=== PATIENT | male | born 1950 | race Caucasian/White ===

== ENCOUNTER 2016-07-12 07:41 | Day surgery (SDC) | payer OTHER, MEDICARE ==
[2016-07-07 17:34] VITALS: BMI 36.6
[2016-07-12] MEDS ORDERED: BUPIVACAINE HCL/PF 0.5% (5MG/ML) 10 ML VIAL ONE ×2 (09:56→10:39)
[2016-07-12] MEDS ORDERED: LIDOCAINE 1%/EPI 1:100000 (50 ML MULTI DOSE VIAL) ONE ×2 (09:56→10:39)
--- NOTE | 2016-07-12 10:42 | HP ---
Satellite PMH - Chief Complaint Chief Complaint: right knee pain s/p medial brennan ukr - Past Medical History Allergies/Adverse Reactions: Allergies Allergy/AdvReac Type Severity Reaction Status Date / Time No Known Allergies Allergy Verified 07/12/16 08:29 - Current Medications Current Medications: Home Medications Medication Instructions Recorded Amlodipine Besylate [Norvasc -] 10 mg PO DAILY 11/16/15 Atorvastatin Ca [Lipitor] 40 mg PO DAILY 11/16/15 Aspirin Coated [Ecotrin -] 81 mg PO DAILY 07/07/16 Oxycodone HCl/Acetaminophen 1 - 2 tab PO Q6H #50 tab MDD 8 07/12/16 [Percocet 5-325 mg Tablet -] Satellite Physical Exam - Physical Examination Vital Signs: Vital Signs Period Temp Pulse Resp BP Sys/Martinez Pulse Ox Last 24 Hr 97.8 F 99 16 116/82 97 General Appearance: Well Nourished, Well Developed, Alert & Oriented x3 ENT: Clear Lung: Normal air movement Heart: Regular rate & rhythm Extremities: Other (right knee- Healed incision, + ttp laterally, + swelling, decr rom, nvi MRI + lmt) Neurological: Intact, Alert, Oriented Satellite Impression/Plan - Impression/Plan Impression: right knee internal derangement Operative Procedure: right knee arthroscopy Date to be Performed: 07/12/16
[2016-07-12] MEDS ORDERED: PROPOFOL 20 ML ONE (10:58)
[2016-07-12] MEDS ORDERED: MIDAZOLAM HCL 2 MG/2 ML SINGLE DOSE VIAL ONE (10:58)
[2016-07-12] MEDS ORDERED: DEXAMETHASONE SOD PHOSPHATE 4 MG/1 ML VIAL ONE (10:58)
[2016-07-12] MEDS ORDERED: KETOROLAC TROMETHAMINE 30 MG/1 ML VIAL ONE (10:58)
[2016-07-12] MEDS ORDERED: ceFAZolin SODIUM 1 GM VIAL ONE (11:11)
[2016-07-12] MEDS ORDERED: ceFAZolin SODIUM 1 GM VIAL IVPB ONE (11:14)
[2016-07-12] MEDS ORDERED: LIDOCAINE 1%/EPI 1:100000 (50 ML MULTI DOSE VIAL) PNB ONE (11:20)
[2016-07-12] MEDS ORDERED: BUPIVACAINE HCL/PF 0.5% (5MG/ML) 10 ML VIAL PNB ONE (11:25)
--- NOTE | 2016-07-12 11:50 | OP ---
Operative Note - Note: Operative Date: 07/12/16 Pre-Operative Diagnosis: internal derrangement right knee Operation: arthroscopy right knee with partial lateral meniscectomy and chondroplasty Post-Operative Diagnosis: Same as Pre-op Anesthesia: General Estimated Blood Loss (mls): 0 Operative Report Dictated: Yes
[2016-07-12] MEDS ORDERED: ONDANSETRON 4 MG/2 ML VIAL IVPUSH PRN (11:52)
[2016-07-12] MEDS ORDERED: oxyCODONE HCL 5 MG TABLET PO PRN (11:52)
[2016-07-12] MEDS ORDERED: ACETAMINOPHEN 1000 MG/100 ML VIAL (NON FORMULARY) IVPB PRN (11:53)
[2016-07-12] MEDS ORDERED: LACTATED RINGERS SOLUTION 1,000 ML IV SCH (12:00)
[2016-07-12 13:23] VITALS: TEMP 98.6
[2016-07-12 14:00] VITALS: BP 126/66; PULSE 90
--- NOTE | 2016-07-13 10:53 | OP ---
DATE OF OPERATION: 07/12/2016 PROCEDURE: 1. Arthroscopy, right knee 2. Partial lateral meniscectomy and chondroplasty PREOPERATIVE DIAGNOSIS: Internal derangement, right knee POSTOPERATIVE DIAGNOSIS: Internal derangement, right knee SURGICAL ATTENDING: Nate Mccormick MD ANESTHESIA: General with LMA CLOSURE: 4-0 nylon COMPLICATION: None CONDITION: To recovery room in stable condition. DESCRIPTION OF OPERATIVE PROCEDURE: Patient was taken to the operating room on July 12, 2016. General anesthesia with LMA was administered by the anesthesiologist. IV Kefzol was administered prophylactically prior to this case. Right lower extremity was prepped in the usual sterile fashion. The superolateral and mediolateral infrapatellar portal sites were infiltrated with 1% Xylocaine with epinephrine. A superolateral portal was made with a 15 blade followed by the blunt trocar. The knee was aspirated and inflated with a cocktail of 10 mL of 1% Xylocaine, 10 mL of 0.5% Marcaine and 20 mL of arthroscopic saline. The medial and lateral infrapatellar portal was then made with a 15 blade followed by the blunt trocar. The scope was placed in the lateral suprapatellar portal and up into suprapatellar pouch. Pouch was visualized to be clean. The medial and lateral gutters were visualized to be clean. The undersurface of the patella and the trochlea were visualized to be intact with minimal, if any, arthritic changes. With valgus stress on the knee, the medial compartment was entered. The partial knee replacement was found to be in good position. Probing of the components revealed good stability of the components and with range of motion seemed to be functioning appropriately. At 90 degrees, the ACL was visualized and probed, found to be intact. In the figure 4 position, the lateral compartment was entered. The lateral meniscus was found to have a complex tear of its posterior and mid portion. This was debrided back to smooth and stable meniscal tissue using a meniscal biter and arthroscopic shaver. The lateral tibial plateau was found to have some grade 4 changes on its most posterior and lateral portion, any loose articular cartilage debrided using the shaver. The lateral femoral condyle also had some grade 4 changes at its most lateral portion, which was present from about 30 to 60 degrees of flexion. The rest of the lateral femoral condyle was found to be basically intact. The knee was thoroughly irrigated out with copious amounts of irrigation and then drained of its fluid. The portals were closed with 3-0 nylon suture, and a sterile pressure dressing was placed over the knee. Prior to closure, 20 mL of 0.5% Marcaine was infused in the knee for postoperative analgesia. A sterile pressure dressing was applied. Patient was awakened from anesthesia and transferred to the recovery room in stable condition. No complications. Estimated blood loss negligible. Jean [id number]
--- NOTE | 2016-07-13 13:49 | PATH ---
Surgical Pathology Report Patient Name: CAROLINE POWELL [facility]. Rec. #: [id number] /Age/Gender: 1950 (Age: 66) / M Account: [id number] Location: [facility] Taken: 07/12/2016 Received: 07/12/2016 Reported: 07/13/2016 Physicians: Nate Mccormick M.D. 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 Electronically Signed Iggy Yan M.D. Gross Description Received in formalin, labeled "right knee shavings" is a 4.0 x 2.5 x 0.4 cm aggregate of soria-yellow soft tissue fragments. A players club representative portion is submitted in one cassette. /07/12/201607/12/2016
== END 2016-07-12 14:00 | disposition home or self-care (01) ==
LOC: JASU-SURG 07:41
PROVIDERS: ATTEND Orthopaedic Surgery
PROC: 0SBC4ZZ Excision of Right Knee Joint, Percutaneous Endoscopic Approach (ICD-10-PCS; principal; 2016-07-12 10:15)
DX: M23.91 Unspecified internal derangement of right knee (principal)
CPT/HCPCS: 88304-TC; 94760

== ENCOUNTER 2017-08-07 06:07 | Inpatient (IN) | payer OTHER, MEDICARE ==
[2017-08-07] MEDS ORDERED: CELECOXIB 200 MG CAPSULE PO ONE (07:05)
[2017-08-07] MEDS ORDERED: TRANEXAMIC ACID 1000 MG/10 ML VIAL IVPUSH ONE (07:05)
[2017-08-07] MEDS ORDERED: CEFAZOLIN 2 GM in DEXTROSE 5%-WATER - 50 ML IVPB ONE (07:05)
[2017-08-07] MEDS ORDERED: oxyCODONE HCL 10 MG SUSTAINED ACTING TABLET PO ONE (07:05)
[2017-08-07] MEDS ORDERED: GABAPENTIN 300 MG CAPSULE (FP) PO ONE (07:05)
[2017-08-07] MEDS ORDERED: ceFAZolin SODIUM 1 GM VIAL ONE ×2 (07:28→11:47)
[2017-08-07] MEDS ORDERED: VANCOMYCIN 1,000 MG VIAL (RESTRICTED TO ID ONLY) ONE (07:28)
[2017-08-07 07:49] VITALS: BMI 40.6
--- NOTE | 2017-08-07 07:50 | HP ---
Satellite [facility] - Chief Complaint Chief Complaint: left knee pain - Past Medical History Allergies/Adverse Reactions: Allergies Allergy/AdvReac Type Severity Reaction Status Date / Time No Known Allergies Allergy Verified 07/12/16 08:29 - Current Medications Current Medications: Home Medications Medication Instructions Recorded Amlodipine Besylate [Norvasc -] 10 mg PO DAILY 11/16/15 Atorvastatin Ca [Lipitor] 40 mg PO DAILY 11/16/15 Aspirin Coated [Ecotrin -] 81 mg PO DAILY 07/07/16 Chlorthalidone 25 mg PO DAILY 07/30/17 Nortriptyline HCl [Pamelor -] 10 mg PO HS 07/30/17 [place]-3/Dha/Epa/Fish Oil [Fish Oil 1 each PO DAILY 07/30/17 EC 1,200 mg Softgel] Tiotropium Br/Olodaterol HCl 4 gm IH DAILY 07/30/17 [Stiolto Respimat Inhal [place]] Ferrous Sulfate 325 mg PO DAILY 08/07/17 Satellite Physical Exam - Physical Examination Vital Signs: Vital Signs Period Temp Pulse Resp BP Sys/Martinez Pulse Ox Last 24 Hr 98.2 F 92 18 133/77 General Appearance: Well Nourished, Well Developed, Alert & Oriented x3 ENT: Clear Lung: Normal air movement Heart: Regular rate & rhythm Extremities: Other (left knee- + swelling, + ttp, decr rom, nvi xrays show grade 4 tricompartmental djd) Neurological: Intact, Alert, Oriented Satellite Impression/Plan - Impression/Plan Impression: left knee djd Operative Procedure: left brennan tkr Date to be Performed: 08/07/17
[2017-08-07] MEDS ORDERED: DEXAMETHASONE SOD PHOSPHATE/PF 10 MG/ML SDV ONE (09:13)
[2017-08-07] MEDS ORDERED: BUPIVACAINE LIPOSOME/PF (EXPAREL) 266 MG/20 ML VIAL ONE (09:13)
[2017-08-07] MEDS ORDERED: MIDAZOLAM HCL 2 MG/2 ML SINGLE DOSE VIAL ONE (09:13)
[2017-08-07] MEDS ORDERED: BUPIVACAINE HCL/PF 2.5 MG/ML - 30 ML VIAL IJ ONE (09:14)
[2017-08-07] MEDS ORDERED: PROPOFOL 20 ML ONE ×3 (11:31→12:18)
[2017-08-07] MEDS ORDERED: TRANEXAMIC ACID 1000 MG/10 ML VIAL ONE (11:47)
[2017-08-07] MEDS ORDERED: ePHEDrine SULFATE 50 MG/1 ML AMPULE ONE (11:47)
[2017-08-07] MEDS ORDERED: VANCOMYCIN 1,000 MG VIAL (RESTRICTED TO ID ONLY) IVPB ONE (12:27)
[2017-08-07] MEDS ORDERED: ONDANSETRON 4 MG/2 ML VIAL IVPUSH PRN (12:58)
[2017-08-07] MEDS ORDERED: MAGNESIUM HYDROX 2400MG/30ML ORAL SUSPENSION 30 ML CUP PO PRN (12:58)
[2017-08-07] MEDS ORDERED: MAG HYDROX/AL HYDROX/SIMETH 30 ML UNIT-DOSE CUP PO PRN (12:58)
[2017-08-07] MEDS ORDERED: LACTATED RINGERS SOLUTION 1,000 ML IV SCH (13:00)
--- NOTE | 2017-08-07 13:02 | OP ---
Operative Note - Note: Operative Date: 08/07/17 (yael) Pre-Operative Diagnosis: left knee djd Operation: left brennan tkr- press-fit Post-Operative Diagnosis: Same as Pre-op Surgeon: Nate Mccormick Diet Supervisor: Mauricio Smith Anesthesiologist/SILK OPENER: Ryan Salazar Anesthesia: Spinal, Local Specimens Removed: bone fragments Estimated Blood Loss (mls): 150 Operative Report Dictated: Yes
[2017-08-07] MEDS ORDERED: ACETAMINOPHEN 325 MG TABLET (FP) ONE (14:08)
[2017-08-07] MEDS ORDERED: ACETAMINOPHEN 325 MG TABLET (FP) PO ONE (14:09)
[2017-08-07] MEDS ORDERED: ACETAMINOPHEN 325 MG TABLET (FP) PO SCH (15:00)
--- NOTE | 2017-08-07 15:12 | SPEC ---
DATE OF OPERATION: 08/07/2017 PREOPERATIVE DIAGNOSIS: Degenerative joint disease, left knee. POSTOPERATIVE DIAGNOSIS: Degenerative joint disease, left knee. PROCEDURE: Left total knee replacement with robotic-assisted navigation (MAKOplasty). SURGICAL ATTENDING: Tonya Mccormick MD ANIME DESIGNER: PRIYANKA Young ANESTHESIA: Regional and spinal. CLOSURE: A [place] Press-Fit Triathlon knee system with a 4 PS femur, a 5 tibia, an 11 polyethylene, a 32 patella; No. 1 Vicryl, fascia; 0 and 2-0 for subcutaneous; and 3-0 Monocryl subcuticular with skin glue for skin; 4-0 undyed Vicryl for pin sites. ESTIMATED BLOOD LOSS: Approximately 100 mL. COMPLICATIONS: None. CONDITION: To recovery room in stable condition. DESCRIPTION OF OPERATIVE PROCEDURE: Patient was taken to the operating room on 08/07/2017. Regional and spinal anesthesia was administered by the anesthesiologist. IV Kefzol was administered prophylactically prior to the case as well as TXA. The left lower extremity was prepped and draped in the usual sterile fashion. The midline 10- to 12-cm longitudinal incision was made. Hemostasis was achieved with Bovie cautery. Sharp dissection was carried down to the extensor mechanism which was perform the procedure. Medial parapatellar arthrotomy was then performed, leaving a cuff of tissue for later closure. The patella was inverted and the knee was flexed up. The fat pad was excised. Subperiosteal dissection was done on the anteromedial proximal tibia until the knee was able to be brought forward. This was facilitated by taking the ACL, PCL and medial and lateral menisci. Checkpoints were placed in both the femur and in the tibia. Two parallel threaded pins were drilled superior to the knee joint through the already made incision from anterior to posterior just going through the anterior cortex but just engaging but not going through the posterior cortex. Two threaded pins were drilled through 2 small stab incisions in parallel fashion 1 handbreadth below the tibial tubercle through the anterior cortex of the tibia and engaging but not going through the posterior cortex. Both sets of pins were attached to navigation arrays for the KAY system. The knee was then registered with the navigation system with center of rotation of the hip, medial and lateral malleoli and multiple sites both on the tibia and on the femur. Confirmation of excellent registration was confirmed by "popping the bubbles." At this time, the knee was thoroughly inspected to remove all osteophytes around the knee. The knee was then tensioned in varus/valgus at both full extension and at 90 degrees of flexion to ascertain our gaps. The virtual position of the components was optimized to ensure equal gaps throughout the range of motion. Once this was performed, the robot was brought into the field, was registered. The bone was cut as per the specifications on both the tibia and on the femur. The box cuts were then made as well. Excellent trial stability was obtained on the femur. The tibial baseplate was allowed to "find itself" and then was clipped into place. Confirmation of excellent external rotation of that component was confirmed by the navigation device as well.The patella was calibered for thickness and cut at the appropriate level. The appropriate lollipop was used to drill 3 holes in the patella and a trial asymmetric patellar button was applied. The knee was taken through a range of motion and found to have excellent stability from full extension to full flexion with excellent tracking of the patella. The trial components were then removed. The lug holes were drilled in the femur. The cementless keel was punched in the tibia. The real Press-Fit components were malleted into place, first with the tibia and then with the femur, and then the patella was crimped into place as well. The real polyethylene liner was then clipped into place. Range of motion, stability and tracking were as described earlier. The knee was thoroughly irrigated with copious amounts of irrigation. Vancomycin powder was placed inside the joint. The medial parapatellar arthrotomy was then closed using No. 1 Vicryl interrupted suture. Post closure of the arthrotomy, the knee was taken through a range of motion and found to have no undue tension on the repair. The subcutaneous was then pulse antibiotic irrigated, closed with 0 and 2-0 Vicryl and 3-0 Monocryl subcuticular with skin glue for the skin. Prior to closure, the checkpoints were removed as were the threaded pins. The tibial pin sites were closed with 4-0 undyed Vicryl. A sterile pressure Aquacel dressing was applied. No tourniquet was used during the case. The total blood loss was approximately 100 mL. No complication. Patient was transferred to recovery in stable condition. TONYA MCCORMICK M.D. LATRICIA/[id number]
[2017-08-07] MEDS: oxyCODONE HCL 5 MG TABLET PO PRN ×2 (16:07→19:14)
[2017-08-07] MEDS: CEFAZOLIN 2 GM/D5W 2 GM/50 ML ML IVPB SCH (19:14)
[2017-08-07] MEDS: ACETAMINOPHEN 325 MG TABLET (FP) PO SCH (20:51)
[2017-08-07] MEDS: oxyCODONE HCL 10 MG SUSTAINED ACTING TABLET PO SCH (21:17)
[2017-08-07] MEDS: SENNOSIDES/DOCUSATE COMBO (SENNA PLUS) TABLET (UD) PO SCH (21:17)
[2017-08-07] MEDS: GABAPENTIN 300 MG CAPSULE (FP) PO SCH (21:17)
[2017-08-07] MEDS ORDERED: NORTRIPTYLINE HCL 10 MG CAPSULE PO SCH (22:00)
[2017-08-08] MEDS: ACETAMINOPHEN 325 MG TABLET (FP) PO SCH ×4 (01:33→19:51)
[2017-08-08] MEDS: oxyCODONE HCL 5 MG TABLET PO PRN ×3 (01:33→17:18)
[2017-08-08] MEDS: CEFAZOLIN 2 GM/D5W 2 GM/50 ML ML IVPB SCH (02:10)
--- NOTE | 2017-08-08 07:39 | PN ---
Progress Note (short form) - Note Progress Note: Ortho Pt seen and examined s/p left brennan tkr pod #1 Selected Entries 08/08/17 03:00 Temperature 98.2 F Pulse Rate 101 H Respiratory 19 Rate Blood Pressure 101/65 dressing c/d/i, calf soft, nt rom 0-30, nvi cbc pending a/p PT dvt ppx pain control d/c home tomorrow if stable
[2017-08-08] MEDS ORDERED: PT OWN MED DRAWER 7, Y5N ONE ×2 (07:59→21:08)
[2017-08-08] MEDS: ASPIRIN 325 MG TABLET PO SCH (08:16)
[2017-08-08 09:12] LABS: HEMATOCRIT 32.8 % (35.4-49); HEMOGLOBIN 11.3 GM/dl (11.7-16.9); MCH 29.1 pg (25.7-33.7); MCHC 34.3 g/dl (32.0-35.9); MEAN CELL VOLUME 84.8 fl (80-96); MEAN PLT VOLUME 7.4 fl (7.5-11.1); PLATELET COUNT 207 K/MM3 (134-434); RBC 3.86 M/mm3 (4.00-5.60); RDW 14.2 % (11.9-15.9); WHITE BLOOD COUNT 8.9 K/mm3 (4.0-10.8)
[2017-08-08] MEDS: ATORVASTATIN CA 40 MG TABLET (FP) PO SCH (09:30)
[2017-08-08] MEDS: SENNOSIDES/DOCUSATE COMBO (SENNA PLUS) TABLET (UD) PO SCH ×2 (09:31→21:58)
[2017-08-08] MEDS: MULTIVITAMINS (DAILY MVI) TABLET (FP) PO SCH (09:31)
[2017-08-08] MEDS: CHLORTHALIDONE 25 MG TABLET PO SCH (09:31)
[2017-08-08] MEDS: amLODIPine BESYLATE 10 MG TABLET (FP) PO SCH (09:31)
[2017-08-08] MEDS: GABAPENTIN 300 MG CAPSULE (FP) PO SCH ×2 (09:31→21:57)
[2017-08-08] MEDS: PANTOPRAZOLE 40 MG TABLET (FP) PO SCH (09:31)
[2017-08-08] MEDS: FERROUS SO4 325 MG TABLET (FP) PO SCH (09:32)
[2017-08-08] MEDS: oxyCODONE HCL 10 MG SUSTAINED ACTING TABLET PO SCH ×2 (09:32→21:58)
[2017-08-08] MEDS ORDERED: PATIENT'S OWN MEDICATION (NON-FORMULARY) (Tiotropium Br/Olodaterol Hcl [Stiolto Respimat I IH SCH (10:00)
--- NOTE | 2017-08-08 16:16 | PN ---
Progress Note (short form) - Note Progress Note: Anesthesia Post op Pt seen and examined S:alert and awake O: Vital Signs Temperature 97.8 F 08/08/17 13:30 Pulse Rate 107 H 08/08/17 13:30 Respiratory Rate 19 08/08/17 13:30 Blood Pressure 137/58 08/08/17 13:30 O2 Sat by Pulse Oximetry (%) 97 08/08/17 08:52 CBC, BMP 08/08/17 08:05 A/P:s/p Left TKR Doing well post op Continue current care Emanuel Harry MD
[2017-08-09] MEDS: oxyCODONE HCL 5 MG TABLET PO PRN ×2 (01:32→08:46)
[2017-08-09] MEDS: ACETAMINOPHEN 325 MG TABLET (FP) PO SCH ×2 (01:35→08:46)
[2017-08-09 06:52] VITALS: BP 152/79; PULSE 105; TEMP 98.2
--- NOTE | 2017-08-09 08:08 | PN ---
Progress Note (short form) - Note Progress Note: Ortho Pt seen and examined s/p left brennan tkr pod #2 Selected Entries 08/09/17 06:51 Temperature 98.2 F Pulse Rate 105 H Respiratory 19 Rate Blood Pressure 152/79 Laboratory Tests 08/08/17 08:05 WBC 8.9 Hgb 11.3 L Hct 32.8 L Plt Count 207 dressing c/d/i, calf soft, nt rom 0-40, nvi a/p PT dvt ppx pain control d/c home today f/u in 1 week
--- NOTE | 2017-08-09 08:09 | DS ---
Physical Examination Vital Signs: Vital Signs Temperature 98.2 F 08/09/17 06:51 Pulse Rate 105 H 08/09/17 06:51 Respiratory Rate 19 08/09/17 06:51 Blood Pressure 152/79 08/09/17 06:51 O2 Sat by Pulse Oximetry (%) 93 L 08/09/17 06:51 Labs: CBC, BMP 08/08/17 08:05 Discharge Summary Reason For Visit: OSTEOARTHRITIS Procedures: Principal: s/p left tkr Hospital Course: admitted for elective left brennan tkr, uneventful post-op, stable for d/c Condition: Good - Instructions Diet, Activity, Other Instructions: Post-op Instructions-Total Knee Replacement Call the office for a follow-up appointment in 1 week - [phone] Aspirin 325mg daily for 6 weeks. Pain medication was sent into your pharmacy. Apply Graduated Compression Stockings (TEDs) to both lower extremities- remove daily for hygiene ONLY Apply Sequential Compression Device (SCDs) to both Lower extremities remove for PT and hygiene ONLY Apply cold packs to affected area for 15 minutes every 2 hours. Physical Therapist will come to your home for the first 5 days. You will be set up with outpatient PT at your first post-operative visit. Patient may ambulate as tolerated-encourage self care (at least every 2-3 hours while awake) with walker or cane Maintain Aquacel (waterproof) dressing to operative wound (will be removed by surgeon at first office visit) Shower with Aquacel dressing in place-if Aquacel integrity compromised, remove and apply dry sterile dressing and notify Orthopedist. DO NOT SHOWER unless Orthopedists approves without Aquacel dressing CONTACT THE OFFICE FOR ANY CHANGE IN YOUR CONDITION (for example-fever greater than 102 degrees, excessive bleeding from operative site, purulent drainage, severe swelling or pain) GO TO THE EMERGENCY ROOM IF THERE IS A MEDICAL EMERGENCY Knee Precautions: * Keep a rolled towel under affected heel while in bed or chair (to keep knee in extension) * Keep affected leg elevated except during mealtimes * DO NOT PLACE PILLOW UNDER AFFECTED KNEE * If you have any questions, please do not hesitate to call the office - [phone]. Referrals: Nate Mccormick MD [Staff Physician] - Disposition: VNS/HOME HEALTH CARE - Home Medications Comprehensive Discharge Medication List: Ambulatory Orders Amlodipine Besylate [Norvasc -] 10 mg PO DAILY 11/16/15 Atorvastatin Ca [Lipitor] 40 mg PO DAILY 11/16/15 Chlorthalidone 25 mg PO DAILY 07/30/17 Nortriptyline HCl [Pamelor -] 10 mg PO HS 07/30/17 [place]-3/Dha/Epa/Fish Oil [Fish Oil EC 1,200 mg Softgel] 1 each PO DAILY Tiotropium Br/Olodaterol HCl [Stiolto Respimat Inhal [place]] 4 gm IH DAILY Aspirin [ASA -] 325 mg PO DAILY@0800 tablet 08/07/17 Ferrous Sulfate 325 mg PO DAILY 08/07/17 Oxycodone HCl/Acetaminophen [Percocet 5-325 mg Tablet] 1 - 2 tab PO Q6H #50 tab MDD 8 08/07/17
[2017-08-09] MEDS: ASPIRIN 325 MG TABLET PO SCH (08:46)
[2017-08-09 08:49] LABS: HEMATOCRIT 32.4 % (35.4-49); HEMOGLOBIN 11.1 GM/dl (11.7-16.9); MCH 29.3 pg (25.7-33.7); MCHC 34.1 g/dl (32.0-35.9); MEAN CELL VOLUME 85.9 fl (80-96); MEAN PLT VOLUME 7.4 fl (7.5-11.1); PLATELET COUNT 203 K/MM3 (134-434); RBC 3.78 M/mm3 (4.00-5.60); RDW 14.1 % (11.9-15.9); WHITE BLOOD COUNT 9.6 K/mm3 (4.0-10.8)
[2017-08-09] MEDS: SENNOSIDES/DOCUSATE COMBO (SENNA PLUS) TABLET (UD) PO SCH (10:00)
[2017-08-09] MEDS: PANTOPRAZOLE 40 MG TABLET (FP) PO SCH (10:00)
[2017-08-09] MEDS: MULTIVITAMINS (DAILY MVI) TABLET (FP) PO SCH (10:00)
[2017-08-09] MEDS: oxyCODONE HCL 10 MG SUSTAINED ACTING TABLET PO SCH (10:00)
[2017-08-09] MEDS: GABAPENTIN 300 MG CAPSULE (FP) PO SCH (10:00)
[2017-08-09] MEDS: FERROUS SO4 325 MG TABLET (FP) PO SCH (10:01)
[2017-08-09] MEDS: CHLORTHALIDONE 25 MG TABLET PO SCH (10:01)
[2017-08-09] MEDS: amLODIPine BESYLATE 10 MG TABLET (FP) PO SCH (10:01)
[2017-08-09] MEDS: ATORVASTATIN CA 40 MG TABLET (FP) PO SCH (10:01)
--- NOTE | 2017-08-10 15:45 | PATH ---
Surgical Pathology Report Patient Name: CAROLINE POWELL Med. Rec. #: [id number] /Age/Gender: 1950 (Age: 67) / M Account: [id number] Location: [facility] MED-SURG Taken: 08/07/2017 Received: 08/07/2017 Reported: 08/10/2017 Physicians: Nate Mccormick M.D. Specimen(s) Received LEFT KNEE BONES Clinical History Osteoarthritis left knee Final Diagnosis BONE AND SOFT TISSUE, LEFT KNEE, REPLACEMENT: DEGENERATIVE JOINT DISEASE. Electronically Signed Jorge Nolasco M.D. Gross Description Received in formalin labeled "left knee bones," is a 13.0 x 8.5 x 2.5 cm aggregate of multiple portions of bone and soft tissue. The tibial plateau measures 7.5 x 5.2 x 1.4 cm. There are no areas of eburnation identified. The articular surfaces are soria-yellow and diffusely granular. The underlying trabecular bone is yellow and hard. Multimedia Authoring Specialist sections are submitted in one cassette, following decalcification. /08/09/2017 [facility]08/09/2017
== END 2017-08-09 12:33 | disposition home health service (06) | DRG 470 ==
LOC: FM/S 06:07
PROVIDERS: ADMIT Orthopaedic Surgery; ATTEND Orthopaedic Surgery
PROC: 0SRD0JA Replacement of Left Knee Joint with Synthetic Substitute, Uncemented, Open Approach (ICD-10-PCS; principal; 2017-08-07 11:09)
DX: M17.12 Unilateral primary osteoarthritis, left knee (principal)
CPT/HCPCS: 36415; 73560-TC-LT-FY; 85027; 88304-TC; 88311-TC; 94010; 94760; 97116-GP; 97162-GP